=== PATIENT | male | born 1995 | race Caucasian/White ===

== ENCOUNTER 2024-06-20 18:39 | Emergency (ER) | payer BC, SELFPAY ==
--- NOTE | 2024-06-20 18:40 | ED_ITS ---
HPI - Abdominal Pain General Chief Complaint: Abdominal Pain Stated Complaint: Abdominal Pain Time Seen by Provider: 06/20/24 18:45 Source: patient and RN notes reviewed Mode of arrival: ambulatory Limitations: no limitations History of Present Illness HPI narrative: 28-year-old male presents to the [facility] with abdominal cramping since yesterday. Denies nausea vomiting diarrhea or fevers. Has a history of IBS, appendectomy States that he has been eating a lot of foods that he should not be eating. Spicy foods Has not had to seek treatment for his issues in a while. Onset (ago): day(s) (1) Related Data Allergies Allergy/AdvReac Type Severity Reaction Status Date / Time Penicillins Allergy Unknown RASH Verified 06/20/24 18:52 Review of Systems Review of Systems: All systems reviewed & are unremarkable except as noted in HPI and below Constitutional: Constitutional: Reports no additional constitutional complaints ENT: Reports system reviewed and no additional complaints, except as documented Cardiovascular: Cardiovascular: Reports no additional cardiovascular complaints, Denies chest pain and Denies dyspnea Respiratory: Respiratory: Reports no additional respiratory complaints, Denies chest congestion, Denies cough and Denies dyspnea Gastrointestinal: Gastrointestinal: Reports as per HPI Musculoskeletal: Musculoskeletal: Reports no additional musculoskeletal complaints Integumentary/Breasts: Skin/Breast: Reports system reviewed and no additional complaints, except as docu PMFSH Surgical History Surgical History History of appendectomy July 2018 Comments At the time of my signature, I reviewed and agree with the nursing past medical, surgical, social, and family history. There is no relevant family history pertinent to the patient complaint. Exam Const: General: cooperative, healthy appearing, comfortable, no acute distress, well developed, alert and well nourished Nutritional Appearance: well nourished Orientation/consciousness: patient oriented x3 Limitations: no limitations HENMT: Head: normal to inspection Mouth: Yes Normal oral and palatal mucosa present, Yes lip normal, Yes tongue normal and Yes moist mucous membranes Eyes: General: appearance normal, both eyes and all related structures Alignment and Position: alignment normal Neck: Neck: normal visual inspection, full ROM, no lymphadenopathy and no meningeal signs Chest: Chest palpation & inspection: normal inspection of the chest Resp: Effort & Inspection: normal respiratory effort and able to speak in complete sentences Auscultation: clear to auscultation bilaterally, no crackles, no rales, no rhonchi and no wheezes Cardio: Rate: regular rate GI: Inspection: normal to inspection GI Palp: Yes Soft to palpation, Yes Tenderness to palpation present (GI), No Guarding due to palpation present (GI) and No Rigid due to palpation Auscultation: normal bowel sounds Skin: General skin exam: normal color and no rashes or lesions noted Neuro: General: patient oriented x3, gait normal, moves all extremities and no meningeal signs Cognition (Neuro): normal cognition Speech: normal speech Gait exam (Neuro): Normal gait present Extrem: General: normal to inspection, full ROM, capillary refill normal and normal gait Psych: Appearance: grossly normal and well kempt Mental Status: mental s tatus grossly normal Speech and movement: Normal speech and movement present and Clear speech present Affect: normal affect Attitude: cooperative Course Course Level of Care: Express Care Visit Vital Signs Vital signs: Vital Signs Temperature 97.9 F 06/20/24 18:42 Pulse Rate 68 06/20/24 18:42 Respiratory Rate 18 06/20/24 18:42 Blood Pressure 118/76 06/20/24 18:42 Pulse Oximetry 100 06/20/24 18:42 Oxygen Delivery Room Air 06/20/24 18:42 Temperature 97.9 F 06/20/24 18:42 Pulse Rate 68 06/20/24 18:42 Respiratory Rate 18 06/20/24 18:42 Blood Pressure 118/76 06/20/24 18:42 Pulse Oximetry 100 06/20/24 18:42 Oxygen Delivery Room Air 06/20/24 18:42 Reviewed MDM - Abdominal Pain MDM Narrative Medical decision making narrative: Patient sitting in exam room. Patient is nontoxic, vitals stable. Patient presents with 1 day history of abdominal cramping, periumbilical area. Patient reports a history of IBS. Has not taking medications. Patient states he needs a work note to return tomorrow. Patient appropriate for outpatient treatment with close follow-up Discharge instructions reviewed with patient, as well as provided in writing per nursing staff. The instructions also include specific and strict return/GO TO THE ER as well as f/u information. All questions have been answered, and the patient deny any further questions with discharge and discharge plan. Some parts of this dictation were generated by voice recognition software and may contain typographical and/or grammatical inaccuracies. Differential Diagnosis Differential diagnosis: Likely abdominal pain, acute appendicitis, calculus of kidney, constipation and diverticulitis Critical Care Time Critical Care Time Critical Care Time: No Discharge Plan Discharge Clinical Impression: History of IBS, Abdominal cramping Patient Disposition: Home Condition: Stable Instructions: Antibiotic Form, Irritable Bowel Syndrome (ED) Additional Instructions: A list for [facility] has been given to you. Please call and make a follow-up appointment. Keep your diet very simple. Nothing fried, greasy, spicy or highly process With IBS it is recommended that she take a pre and probiotic. For new or worsening symptoms go directly to the emergency room Patient Language: Greenlandic Prescriptions: New dicyclomine 10 mg capsule 10 mg PO TID 7 Days Qty: 21 0RF Follow-up/Referrals: Laith,Bharath Joseph MD [Primary Care Provider] - Stand Alone Forms: Work/School Release IP Time of Disposition: 18:56
[2024-06-20 18:42] VITALS: BP 118/76; PULSE 68; RESP 18; TEMP 36.6; O2SAT 100
== END 2024-06-20 18:59 | disposition home or self-care (01) ==
PROVIDERS: Emergency Provider Nurse Practitioner; PCP Family Medicine
DX: K58.9 Irritable bowel syndrome, unspecified (principal); R10.9 Unspecified abdominal pain
CPT/HCPCS: 99203; G0463

== ENCOUNTER 2024-06-29 02:22 | Emergency (ER) | payer BC, SELFPAY ==
--- OUTSIDE RECORDS SUMMARY | 2024-06-29 02:25 | XMS_ITS | Clinical Summary ---
Author Organization [facility] Address [address] [place] [address] Care Team Providers Care Air Brake Mechanic Name Role Phone Charanjit Bagley MD Unavailable [phone] Alondra Brand MD Primary Care Provider [phone] Allergies Active Allergy Reactions Criticality Noted Date Comments Penicillins Hives 09/18/2015 Medications No known medications Active Problems Problem Noted Date Diagnosed Date Tobacco use 09/29/2015 Cardiac murmur, unspecified Asthma (HHS/HCC) Thyroid disease Family History Medical History Relation Comments [place] Paternal Grandmother Relation Status Comments Paternal Grandmother Social History Tobacco Use Types Packs/Day Years Used Date Smoking Tobacco: Every Day Cigarettes Smokeless Tobacco: Never Alcohol Use Standard Drinks/Week Comments Yes 0 (1 standard drink = 0.6 oz pur e alcohol) occasionally Sex and Gender Information Value Date Recorded Sex Assigned at Not on file Legal Sex Male 5:20 PM CDT Gender Identity Not on file Sexual Orientation Not on file Last Filed Vital Signs Vital Sign Reading Time Taken Comments Blood Pressure 124/78 10/23/2015 8:41 AM CDT Pulse 60 09/18/2015 11:05 AM CDT Temperature - - Respiratory Rate - - Oxygen Saturation 99% 09/18/2015 11:05 AM CDT Inhaled Oxygen Concentration - - Weight 55.8 kg (123 lb) 10/23/2015 8:10 AM CDT Height 172.7 cm (5' 8 ) 10/23/2015 8:10 AM CDT Body Mass Index 18.7 10/23/2015 8:10 AM CDT Plan of Treatment Health Maintenance Due Date Last Done Comments Annual Physical 09/01/1998 Hepatitis C 09/01/2013 DTaP, Tdap and Td Vaccines ( 1 - Tdap) 09/01/2014 Hepatitis B Vaccines (1 of 3 - 19+ 3-dose series) 09/01/2014 Pneumococcal Vaccine: Pediat rics (0 to 5 Years) and At-Risk Patients (6 to 49 Years) (1 of 2 - PCV) 09/01/2014 COVID-19 Vaccine (1 - 2023-2 5 season) 2023 HPV Vaccines Aged Out No longer eligi ble based on patient's age to complete this topic Meningococcal B Vaccine Aged Out No l onger eligible based on patient's age to complete this topic Meningococcal Vaccine Aged Out No jennifer morteza eligible based on patient's age to complete this topic RSV Immunizations Under 20 Months Aged Out No longer eligible based on patient's age to complete this topic Insurance [address] [place] [address] [id number] [place] [address] Care Teams Air Brake Mechanic Relationship Specialty Start Date End Date Alondra Brand MD [address] [place] [address] PCP - General 10/18/16 Charanjit Bagley MD [facility]. [address] [place] [address] [employer] Correspondent CARDIOVASCULAR DISEASE 08/19/15
--- OUTSIDE RECORDS SUMMARY | 2024-06-29 02:25 | XMS_ITS | Encounter Summary ---
Author Organization [facility] Address [facility] [place] [address] Care Team Providers Care Gearcase Assembler Name Role Phone Alondra Brand MD Primary Care Provider [phone] Charanjit Bagley MD Unavailable [phone] Md Generic Conversion Primary Care Provider Unavailable Md Generic Conversion Primary Care Provider Unavailable Md Generic Conversion Primary Care Provider Unavailable Md Generic Conversion Primary Care Provider Unavailable Alondra Brand MD Primary Care Provider Encounter Details Date Type Department Care Team (Late st Contact Info) Description 08/19/2015 Abstract [facility] AT [address] [address] Lisa Trevino, [facility] Social History Tobacco Use Types Packs/Day Years Used Date Smoking Tobacco: Never Assessed Sex and Gender Information Value Date Recorded Sex Assigned at Not on file Legal Sex Male 5:20 PM CDT Gender Identity Not on file Sexual Orientation Not on file documented as of this encounter Plan of Treatment Not on file documented as of this encounter Procedures Procedure Name Priority Date/Time Associated Diagnosis Comments COMPREHENSIVE METABOLIC PANEL Routine 07/09/2015 LIPID PANEL Routine 07/09/2015 documented in this encounter Results * COMPREHENSIVE METABOLIC PANEL (07/09/2015) SODIUM S/P/B 143 POTASSIUM S/P/B 4.5 CO2 26 CHLORIDE S/P/B 101 GLUCOSE 92 CALCIUM S/P/B 9.8 BUN 10 CREATININE S/P/B 0.85 EGFR AFR. AMER. 146 EGFR NON-AFR. AMER. 126 ALKALINE PHOSPHATASE S/P/B 64 ALT 15 AST 15 BILIRUBIN TOTAL S/P/B 0.5 ALBUMIN S/P/B 4.8 3.5 - 5.0 TOTAL PROTEIN S/P/B 7.0 GLOBULIN 2.2 07/09/2015 us Doc [facility] Final Result * LIPID PANEL (07/09/2015) CHOLESTEROL 156 HDL 37 TRIGLYCERIDES 66 LDL (CALCULATED) 106 07/09/2015 us Doc [facility] Final Result documented in this encounter Visit Diagnoses Not on filedocumented in this encounter Care Teams Gearcase Assembler Relationship Specialty Start Date End Date Alondra Brand MD [address] [facility] [address] [place] [address] PCP - General FAMILY PRACTICE 08/19/15 08/23/15 Md Generic Conversion, PCP - General 02/11/16 10/17/16 Md Generic Conversion, PCP - General 10/22/15 02/10/16 Md Generic Conversion, PCP - General 10/20/15 10/21/15 Md Generic Conversion, PCP - General 08/24/15 10/19/15 Alondra Brand MD [address] [facility] [address] [place] [address] PCP - General 10/18/16 Charanjit Bagley MD [address] [facility]. [address] [place] [address] [employer] CARDIOVASCULAR DISEASE 08/19/15 documented as of this encounter
--- OUTSIDE RECORDS SUMMARY | 2024-06-29 02:25 | XMS_ITS | Clinical Summary ---
Author Organization [facility] Address [address] [place] [address] Care Team Providers Care Desktop Specialist Name Role Phone Bharath Covington MD Primary Care Provider [phone] Source Comments [facility],non-owned Affiliates and Associated Physician Practices is amultiple site organization consisting of ambulatory clinics and hospital sitesin [place], [place], [place] and [place]. This disclosure is being madepursuant to the Care Everywhere program and may not contain all information available regarding this patient. Last updated 17.[facility] Allergies Active Allergy Reactions Criticality Noted Date Comments Penicillins Rash 06/18/2009 Medications * Be aware that medications may not be up to date on this document. Alwaysverify current medications with the patient. fluticasone propionate (FLUTICASONE PROPIONATE) 50 MCG/ACT nasal spray [place] 2 Sprays into each nostril once daily. 1 Bottle 3 08/02/2012 Active Family History Medical History Relation Name Comments Childhood Hearing Disorder Maternal Aunt Anesthesia Reaction Other mat grandmother hard to wake Bleeding Disorders Neg Hx Relation Name Status Comments Maternal Aunt Other mat grandmother Alive Social History Tobacco Use Types Packs/Day Years Used Date Smoking Tobacco: Never Alcohol Use Standard Drinks/Week Comments No 0 (1 standard drink = 0.6 oz pur e alcohol) Sex and Gender Information Value Date Recorded Sex Assigned at Not on file Legal Sex Male 5:38 AM BRICK CATCHER Gender Identity Not on file Sexual Orientation Not on file Last Filed Vital Signs Vital Sign Reading Time Taken Comments Blood Pressure 120/68 08/25/2009 11:10 AM CDT Pulse 60 08/25/2009 12:44 PM CDT Temperature 36.7 C (98 F) 08/25/2009 11:10 AM CDT Respiratory Rate 14 08/25/2009 12:44 PM CDT Oxygen Saturation 100% 08/25/2009 10:50 AM CDT Inhaled Oxygen Concentration - - Weight 53.1 kg (117 lb) 08/02/2012 1:03 PM CDT Height 170.2 cm (5' 7 ) 08/02/2012 1:03 PM CDT Body Mass Index 18.32 08/02/2012 1:03 PM CDT Plan of Treatment Health Maintenance Due Date Last Done Comments HIV SCREENING 09/01/2010 HEPATITIS C SCREENING 08/28/2013 DTAP/TDAP/TD VACCINES (1 - Tdap) 09/01/2014 HEPATITIS B VACCINE (1 of 3 - 19+ 3-dose series) 09/01/2014 COVID-19 VACCINE (1 - 2023-2 5 season) 2023 DEPRESSION SCREENING 03/06/2024 INFLUENZA VACCINE (Season Ended) 2024 ZOSTER VACCINE (1 of 2) 09/01/2045 HIB VACCINE Aged Out No longer eligi ble based on patient's age to complete this topic HPV VACCINE Aged Out No longer eligi ble based on patient's age to complete this topic MENINGOCOCCAL (Group B) VACC INE SHARED DECISION-MAKING Aged Out No longer eligibl e based on patient's age to complete this topic MENINGOCOCCAL GROUPS A/C/Y/W VACCINE Aged Out No longer eligible b ased on patient's age to complete this topic PNEUMOCOCCAL VACCINE Aged Out No long er eligible based on patient's age to complete this topic Insurance [employer] Care Teams Desktop Specialist Relationship Specialty Start Date End Date Bharath Covington MD [address] [address] PCP - General 05/19/09
--- OUTSIDE RECORDS SUMMARY | 2024-06-29 02:25 | XMS_ITS | Patient Health Record ---
Author Organization [facility] Planning Address [address] [place] [address] Care Team Providers Care Dry Box Tender Name Role Phone Padilla Garcia Primary Care Provider Allergies Allergen (clinical drug ingredient) Drug/Non Drug Allergy documented on EMR Reaction Allergy Type Onset Date Status amoxicillin Amoxicillin rash Drug Allergy Act kade Penicillin rash Drug Allergy Active Results Component Value Reference Range Notes CBC W AUTO DIFF Reviewed date:04/24/2024 11:53:14 AM Interpretation: Performing Lab:[place], [facility]-[id number] Andrzej Mortensen, [id number] Tirso Ley MD Notes/Report: 0; 0; 0 WHITE BLOOD CELL COUNT 7.9 3.8-10.8 Thousand/ uL RED BLOOD CELL COUNT 5.67 4.20-5.80 Million/uL HEMOGLOBIN 16.3 13.2-17.1 g/dL HEMATOCRIT 47.9 38.5-50.0 % MCV 84.5 80.0-100.0 fL MCH 28.7 27.0-33.0 pg MCHC 34.0 32.0-36.0 g/dL For adults, a slight decrease in the calculated MCHC value (in the range of 30 to 32 g/dL) is most likely not clinically significant; however, it should be interpreted with caution in correlation with other red cell parameters and the patient's clinical condition. RDW 12.9 11.0-15.0 % PLATELET COUNT 276 140-400 Thousand/uL MPV 10.8 7.5-12.5 fL ABSOLUTE NEUTROPHILS 4629 0833-6363 cells/uL ABSOLUTE LYMPHOCYTES 2070 850-3900 cells/uL ABSOLUTE MONOCYTES 664 200-950 cells/uL ABSOLUTE EOSINOPHILS 450 15-500 cells/uL ABSOLUTE BASOPHILS 87 0-200 cells/uL NEUTROPHILS 58.6 LYMPHOCYTES 26.2 MONOCYTES 8.4 EOSINOPHILS 5.7 BASOPHILS 1.1 COMPREHENSIVE METABOLIC PANE L (CMP) Reviewed date:04/24/2024 11:53:14 AM Interpretation: Performing Lab:[facility]-[id number] Andrzej Mortensen, [id number] Tirso Ley MD Notes/Report: 0; 0; 0 GLUCOSE 94 65-99 mg/dL Fasting reference interval UREA NITROGEN (BUN) 11 7-25 mg/dL CREATININE 0.93 0.60-1.24 mg/dL EGFR 115 > OR = 60 mL/min/1.73m2 BUN/CREATININE RATIO SEE NOTE: 6-22 (calc) Not Reported: BUN and Creatinine are within reference range. SODIUM 141 135-146 mmol/L POTASSIUM 4.3 3.5-5.3 mmol/L CHLORIDE 104 98-110 mmol/L CARBON DIOXIDE 32 20-32 mmol/L CALCIUM 9.2 8.6-10.3 mg/dL PROTEIN, TOTAL 6.8 6.1-8.1 g/dL ALBUMIN 4.7 3.6-5.1 g/dL GLOBULIN 2.1 1.9-3.7 g/dL (calc) ALBUMIN/GLOBULIN RATIO 2.2 1.0-2.5 (calc) BILIRUBIN, TOTAL 0.6 0.2-1.2 mg/dL ALKALINE PHOSPHATASE 67 36-130 U/L AST 17 10-40 U/L ALT 36 9-46 U/L LIPID PANEL Reviewed date:04/24/2024 11:53:14 AM Interpretation: Performing Lab:[facility]-[id number] Andrzej Mortensen, [id number] Tirso Ley MD Notes/Report: 0; 0; 0 CHOLESTEROL, TOTAL 194 <200 mg/dL HDL CHOLESTEROL 38 > OR = 40 mg/dL TRIGLYCERIDES 152 <150 mg/dL LDL-CHOLESTEROL 129 Reference range: <100 Desirable range <100 mg/dL for primary prevention; <70 mg/dL for patients with CHD or diabetic patients with > or = 2 CHD risk factors. LDL-C is now calculated using the Matthew-Robertson calculation, which is a validated novel method providing better accuracy than the Friedewald equation in the estimation of LDL-C. Matthew SS et al. CARLO. 2013;310(19): 1866-6962 (http://education.United Prototype/faq/NKO060) CHOL/HDLC RATIO 5.1 <5.0 (calc) NON HDL CHOLESTEROL 156 <130 mg/dL (calc) For patients with diabetes plus 1 major ASCVD risk factor, treating to a non-HDL-C goal of <100 mg/dL (LDL-C of <70 mg/dL) is considered a therapeutic option. Reason For Referral Reason eval and treat chron ic low back pain * Type: New Patient * To be seen: First Available Appt * Preferred Provider: MD or Mid-Level *[place]: Please fax consultation note and any testing completed to [phone]. Thank you. Diagnosis 1 Lumbago with sciatic a, right side (M54.41) Diagnosis 2 Lumbago with sciatic a, left side (M54.42) Referral Organization [facility] Referring Provider First Name Padilla Referring Provider Last Name Jose Referring Provider Speciality Family Pra ctice Referred Provider Specialty Physical The rapist General Notes Vijaya Gonsalez 0 04/24/2024 08:42:10 AM >faxing to [facility] Rehab fax [phone], Vijaya Gonsalez 04/25/2024 04:37:25 PM >closing per protocol Clinical Notes [facility] Rehab , ph. , fax [phone] Referral Priority Routine Medications Medication SIG (Take, Route, Frequency, Duration) Notes Start Date End Date Status Dicyclomine HCl 10 MG 1 capsules Orally four times a day Active Cyclobenzaprine HCl 10 MG 1 tablet at be dtime as needed Orally Once a day Active Albuterol Sulfate HFA 108 (9 0 Base) MCG/ACT 1 puff as needed Inhalation every 4 hrs for 30 days Active Social History Tobacco Use: Social History Observation Description Date Details (start date - stop date) Never Smoker NA - NA Tobacco use other than smoking: Question Answer Notes Are you an other tobacco user? No , Vaping DAST-10 (2020 Edition) Question Answer Notes 1. Have you used drugs other than those required for medical reasons? No 2. Do you abuse more than one drug at a time? No 3. Are you always able to st op using drugs when you want to? Yes 4. Have you had blackouts or flashbacks as a result of drug use? No 5. Do you ever feel bad or guilty about your tim g use? No 6. Does your spouse (or pare nts) ever complain about your involvement with drugs? No 7. Have you neglected your f amily because of your use of drugs? No 8. Have you engaged in PlexPressg al activities in order to obtain drugs? No 9. Have you ever experienced withdrawal symptoms (felt sick) when you stopped taking drugs? No 10. Have you had medical pro blems as a result of your drug use (e.g., memory loss, hepatitis, convulsions, bleeding etc.)? No Results: 0 Interpretation of Score: No problems reported Tobacco Control (Standard) Question Answer Notes Tobacco use: Nonsmoker AUDIT-C (Standard) Question Answer Notes Did you have a drink contain ing alcohol in the past year? Yes How often did you have a dri nk containing alcohol in the past year? Monthly or less (1 point) How many drinks did you have on a typical day when you were drinking in the past year? 3 or 4 drinks (1 point) How often did you have six o r more drinks on one occasion in the past year? Never (0 point) Points 2 Interpretation Negative Problems Problem Type SNOMED Code ICD Code Onset Dates Problem Status W/U Status Risk Notes Problem 61337306 Other chronic pain (G89.29) Active confirmed Problem 792714390 Mild intermitten t asthma, uncomplicated (J45.20) Active confirmed Problem 272932247138967 Lumbago with sciatica, right side (M54.41) Active confirmed Problem 212742920 Lumbago with sciatica, left side (M54.42) Active confirmed Vital Signs Heart Rate 86 /min 04/23/2024 Temperature 97.3 degrees Fahrenheit 04/23/2024 Respiratory Rate 18 /min 04/23/2024 Blood pressure diastolic 75 mm Hg 04/23/2024 Oximetry 98 % 04/23/2024 Height-cm 172.72 cm 04/23/2024 Weight-kg 63.05 kg 04/23/2024 Height 5ft 8in in 04/23/2024 Blood pressure systolic 110 mm Hg 04/23/2024 Weight 139.0 lbs 04/23/2024 BMI 21.13 kg/m2 04/23/2024 Procedures Procedure Date Ordered Date Performed Result Body Sit e EAR IRRIGATION 04/23/2024 04/23/2024 N/A Encounters Encounter Location Date Provider Diagnosis [address] [address] 04/23/2024 Padilla Garcia Encounter to [facility] Z76.89 ; Screening for cardiovascular condition Z13.6 ; Other chronic pain G89.29 ; Lumbago with sciatica, right side M54.41 ; Lumbago with sciatica, left side M54.42 ; Bilateral impacted cerumen H61.23 and Mild intermittent asthma, uncomplicated J45.[address] [address] 04/24/2024 Padilla Garcia [address] [address] 05/01/2024 Padilla Garcia [address] [address] 05/22/2024 Padilla Garcia Assessments Encounter Date Diagnosis (ICD Code) Assessment Notes Treatment Notes Treatment Clinical Notes Section Notes 04/23/2024 Screening for cardiovascular condition (ICD-10 - Z13.6) 04/23/2024 [facility]counter to [facility] (ICD-10 - Z76.89) Reviewed PMHx, Surgical History, and medications with patient. 04/23/2024 Other chronic pain (ICD-10 - G89.29) - Limit activities that increase pain but try to increase mobility with stretching and exercise daily. - Use proper body mechanics for lifting. May alternate between cold and hot packs. - May use Ibuprofen OTC to relieve pain and inflammation. (if instructed) or Tylenol OTC. - May use OTC lidocaine patch or Capsaicin cream to affected area for pain. - It is important to wear good supportive shoes. - Go to ER if symptoms worsen (motor deficits to lower extremities, numbness/tingli ng lower extremities, lose control of bowel/bladder). F/U as discussed, patient v/u. 04/23/2024 Lumbago with sciatica, right side (ICD-10 - M54.41) - our office will call you with an appointment date and time - please call the office in 2 week if you have do not have this information 04/23/2024 Lumbago with sciatica, left side (ICD-10 - M54.42) 04/23/2024 Bilateral impacted cerumen (ICD-10 - H61.23) nursing staff completed ear lavage TM and AC normal 04/23/2024 Mild intermittent asthma, uncomplicated (ICD-10 - J45.20) 04/23/2024 Other Learning About Dental Care material was published Plan Of Treatment Next Appt Details Provider Name:Padilla Ross , 07/25/2024 09:00:00 AM, [address] [place], [address], Insurance Providers Payer Name Payer Address Payer Phone Subscriber Number Group Number Insured Name Patient Relationship to Insured Coverage Start Date Coverage End Date O BCBS FQHC [address] [place] [phone] [id number] 3 Baltazar Gibbons Self - patient is the insured 5 O BCBS FFS [address] [place] [phone] [id number] 3 Baltazar Gibbons Self - patient is the insured 5 O BCBS Nonbillable [address] [place] [phone] [id number] 3 Baltazar Gibbons Self - patient is the insured 5 Medical (General) History Surgical History Surgery Date(Month/Year) apendectomy tonsils removed adnoids removed twice tubes in ears
[2024-06-29 02:29] VITALS: BP 112/64; PULSE 73; RESP 18; TEMP 36.6; O2SAT 98
[2024-06-29 02:53] VITALS: RESP 16; O2SAT 99
[2024-06-29 02:58] VITALS: BP 117/80; PULSE 66; RESP 13; O2SAT 100
--- OUTSIDE RECORDS SUMMARY | 2024-06-29 04:50 | XMS_ITS | Clinical Summary ---
Author Organization [facility] Address [address] [place] [address] Care Team Providers Care Associate Manager Name Role Phone Bharath Covington MD Primary Care Provider [phone] [facility],non-owned Affiliates and Associated Physician Practices is amultiple site organization consisting of ambulatory clinics and hospital sitesin [place], [place], [place] and [place]. This disclosure is being madepursuant to the Care Everywhere program and may not contain all information available regarding this patient. Last updated 17.[facility] [employer] Allergies Active Allergy Reactions Criticality Noted Date Comments Penicillins Rash 06/18/2009 Medications * Be aware that medications may not be up to date on this document. Alwaysverify current medications with the patient. fluticasone propionate (FLUTICASONE PROPIONATE) 50 MCG/ACT nasal spray [place] 2 Sprays into each nostril once daily. 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
--- OUTSIDE RECORDS SUMMARY | 2024-06-29 04:50 | XMS_ITS | Clinical Summary ---
Author Organization [facility] Address [address] [place] [address] Care Team Providers Care Cloud Engineer Name Role Phone Charanjit Bagley MD Unavailable [phone] Alondra Brand MD Primary Care Provider [phone] Allergies Active Allergy Reactions Criticality Noted Date Comments Penicillins Hives 09/18/2015 Medications No known medications Active Problems Problem Noted Date Diagnosed Date Tobacco use 09/29/2015 Cardiac murmur, unspecified Asthma (HHS/HCC) Thyroid disease Family History Medical History Relation Comments [place] Paternal Grandmother Relation Status Comments Paternal Grandmother [...] age to complete this topic Insurance [address] [place] [address] [id number] [place] [address] Care Teams Cloud Engineer Relationship Specialty Start Date End Date Alondra Brand MD [address] [place] [address] PCP - General 10/18/16 Charanjit Bagley MD Three [facility]. [address] [place] [address] [place] [employer] Dish Repairer CARDIOVASCULAR DISEASE 08/19/15
--- OUTSIDE RECORDS SUMMARY | 2024-06-29 04:50 | XMS_ITS | Encounter Summary ---
Author Organization [facility] Address [facility] [place] [address] Care Team Providers Care Weigh And Charge Worker Name Role Phone Alondar Brand MD Primary Care Provider Charanjit Bagley MD Unavailable [phone] Md Generic Conversion Primary Care Provider Unavailable Md Generic Conversion Primary Care Provider Unavailable Md Generic Conversion Primary Care Provider Unavailable Md Generic Conversion Primary Care Provider Unavailable Alondra Brand MD Primary Care Provider [phone] Encounter Details Date Type Department Care Team (Late st Contact Info) Description 08/19/2015 Abstract [facility] AT [address] [address] Lisa Trevino, [facility] Social History Tobacco Use Types Packs/Day Years [...] on filedocumented in this encounter Care Teams Weigh And Charge Worker Relationship Specialty Start Date End Date Alondra Brand MD [address] [facility] [address] [place] [address] PCP - General FAMILY PRACTICE 08/19/15 08/23/15 Md Generic Conversion, PCP - General 02/11/16 10/17/16 Md Generic Conversion, PCP - General 10/22/15 02/10/16 Md Generic Conversion, PCP - General 10/20/15 10/21/15 Md Generic Conversion, PCP - General 08/24/15 10/19/15 Alondra Brand MD [address] [facility] [address] [place] [address] PCP - General 10/18/16 Charanjit Bagley MD Three [facility]. [address] [place] [address] [place] Utility Operator CARDIOVASCULAR DISEASE 08/19/15 documented as of this encounter
--- NOTE | 2024-06-29 05:09 | ED_ITS ---
HPI - General Adult General Chief complaint: Unspecified Stated complaint: panic attack, N/V Time Seen by Provider: 06/29/24 04:40 History of Present Illness HPI narrative: This is a 28-year-old male presenting ED for panic attack. He was fighting with his because he found out she had been cheating on him. This caused him to have a panic attack. He has also been nauseous for several days. He denies chest pain difficulty breathing abdominal pain. He has a history of panic at tacks and this was his typical Related Data Allergies Allergy/AdvReac Type Severity Reaction Status Date / Time Penicillins Allergy Unknown RASH Verified 06/20/24 18:52 [facility] Surgical History Surgical History History of appendectomy July 2018 Exam Narrative: APPEARANCE: No apparent distress. Head: atraumatic. EYES: EOMI, NOSE: Atraumatic NECK: Trachea midline RESPIRATORY: No increased rate of breathing CTAB CARDIOVASCULAR: RRR, ABDOMINAL: Non-distended soft nontender MUSCULOSKELETAl: No obvious deformities NEURO: Alert. Moving 4/4 extremities SKIN:: Warm, dry. Normal color PSYCHIATRIC: Normal affect Course Vital Signs Vital signs: Vital Signs Temperature 98 F 06/29/24 02:29 Pulse Rate 73 06/29/24 02:29 Respiratory Rate 18 06/29/24 02:29 Blood Pressure 112/64 06/29/24 02:29 Pulse Oximetry 98 06/29/24 02:29 Oxygen Delivery Room Air 06/29/24 02:29 Temperature 98 F 06/29/24 02:29 Pulse Rate 66 06/29/24 02:58 Respiratory Rate 13 06/29/24 02:58 Blood Pressure 117/80 06/29/24 02:58 Pulse Oximetry 100 06/29/24 02:58 Oxygen Delivery Room Air 06/29/24 02:29 Medical Decision Making MDM Narrative Medical decision making narrative: -Course: 28-year-old male presenting with panic attack. By time his panic attack and resolved he is resting comfortably in bed. Has been having some nausea over last several days but no other symptoms. He has a history of IBS which is likely tied to his increased stress. Patient will be given a prescription for Zofran. Discharged primary care follow-up -DDX includes but is not limited to: Anxiety, panic attack, IBS Vital Signs Vital Signs: Vital Signs Temperature 98 F 06/29/24 02:29 Pulse Rate 73 06/29/24 02:29 Respiratory Rate 18 06/29/24 02:29 Blood Pressure 112/64 06/29/24 02:29 Pulse Oximetry 98 06/29/24 02:29 Oxygen Delivery Room Air 06/29/24 02:29 Temperature 98 F 06/29/24 02:29 Pulse Rate 66 06/29/24 02:58 Respiratory Rate 13 06/29/24 02:58 Blood Pressure 117/80 06/29/24 02:58 Pulse Oximetry 100 06/29/24 02:58 Oxygen Delivery Room Air 06/29/24 02:29 Discharge Plan Discharge Clinical Impression: Anxiety Patient Disposition: Home Condition: Stable Instructions: Antibiotic Form, Anxiety (ED) Additional Instructions: Please follow-up with your primary care physician for further management. If you develop thoughts of harming herself or others please return to the ED. Please try to review self instructional situations. Patient Language: Greenlandic Prescriptions: New ondansetron 4 mg tablet,disintegrating 4 mg PO Q8H PRN (Reason: nausea and vomiting) Qty: 30 0RF No Action dicyclomine 10 mg capsule 10 mg PO TID 7 Days Qty: 21 0RF Follow-up/Referrals: Laith,Bharath Joseph MD [Primary Care Provider] - 1 Week ( anxiety )
[2024-06-29 05:12] VITALS: BP 104/67; PULSE 69; RESP 13; O2SAT 100
[2024-06-29 05:36] VITALS: BP 104/67; PULSE 69; RESP 13; O2SAT 100
== END 2024-06-29 05:42 | disposition home or self-care (01) ==
PROVIDERS: Emergency Provider Emergency Medicine; PCP Family Medicine
DX: F41.9 Anxiety disorder, unspecified (principal); K58.9 Irritable bowel syndrome, unspecified
CPT/HCPCS: 99283

== ENCOUNTER 2024-07-15 19:50 | Emergency (ER) | payer OTHER, BC, SELFPAY ==
--- OUTSIDE RECORDS SUMMARY | 2024-07-15 19:52 | XMS_ITS | Clinical Summary ---
Author Organization [facility] Address [address] [place] [address] Care Team Providers Care Occupational Ther Name Role Phone Charanjit Bagley MD Unavailable [phone] Alondra Brand MD Primary Care Provider [phone] Allergies Active Allergy Reactions Criticality Noted Date Comments Penicillins Hives 09/18/2015 Medications No known medications Active Problems Problem Noted Date Diagnosed Date Tobacco use 09/29/2015 Cardiac murmur, unspecified Asthma (HHS/HCC) Thyroid disease Family History Medical History Relation Comments [place] Paternal Grandmother Relation Status Comments Paternal Grandmother [...] age to complete this topic Insurance [address] [place] [address] [id number] [place] [address] Care Teams Occupational Ther Relationship Specialty Start Date End Date Alondra Brand MD [address] [place] [address] PCP - General 10/18/16 Charanjit Bagley MD Three [facility]. [address] [place] [address] [place] Customer Experience Analyst CARDIOVASCULAR DISEASE 08/19/15
--- OUTSIDE RECORDS SUMMARY | 2024-07-15 19:52 | XMS_ITS | Patient Health Record ---
Author Organization [facility] Address [facility] [address] Care Team Providers Care Multi Spindle Operator Name Role Phone Padilla Garcia Primary Care Provider Allergies Allergen (clinical drug ingredient) Drug/Non Drug Allergy documented on EMR Reaction Allergy Type Onset Date Status amoxicillin Amoxicillin rash Drug Allergy Act kade Penicillin rash Drug Allergy Active Results Component Value Reference Range Notes CBC W AUTO DIFF Reviewed date:04/24/2024 11:53:14 AM Interpretation: Performing Lab:[place], [facility]-[id number] Andrzej Mortensen, [id number] Tirso Ley MD Notes/Report: 0; 0; 0 [...] MPV 10.8 7.5-12.5 fL ABSOLUTE NEUTROPHILS 4629 5423-4701 cells/uL ABSOLUTE LYMPHOCYTES 2070 850-3900 cells/uL ABSOLUTE MONOCYTES 664 200-950 cells/uL ABSOLUTE EOSINOPHILS 450 15-500 cells/uL ABSOLUTE BASOPHILS 87 0-200 cells/uL NEUTROPHILS 58.6 LYMPHOCYTES 26.2 MONOCYTES 8.4 EOSINOPHILS 5.7 BASOPHILS 1.1 COMPREHENSIVE METABOLIC PANE L (CMP) Reviewed date:04/24/2024 11:53:14 AM Interpretation: Performing Lab:[facility]-[id number] Andrzej Mortensen, [id number] Tirso Ley MD Notes/Report: 0; 0; 0 [...] Reviewed date:04/24/2024 11:53:14 AM Interpretation: Performing Lab:[facility]-[id number] Andrzej Mortensen, [id number] Tirso Ley MD Notes/Report: 0; 0; 0 [...] equation in the estimation of LDL-C. Matthew VANCE et al. CARLO. 2013;310(19): 1681-4475 (http://Alohar Mobile.Moncai/faq/VUA891) CHOL/HDLC RATIO 5.1 <5.0 (calc) NON HDL [...] consultation note and any testing completed to [phone]. Thank you. Diagnosis 1 Lumbago with sciatic a, right side (M54.41) Diagnosis 2 Lumbago with sciatic a, left side (M54.42) Referral Organization [facility] Referring Provider First Name Padilla Referring Provider Last Name Jose Referring Provider Speciality Family Pra ctice Referred Provider Specialty Physical The rapist General Notes Vijaya Gonsalez 0 04/24/2024 08:42:10 AM >faxing to [facility] Rehab fax [phone], Vijaya Gonsalez 04/25/2024 04:37:25 PM >closing per protocol Clinical Notes [facility] Rehab , ph. , fax [phone] Referral Priority Routine Medications Medication SIG (Take, [...] drugs? No 8. Have you engaged in Logicworksg al activities in order to obtain drugs? [...] Problem Status W/U Status Risk Notes Problem 40253457 Other chronic pain (G89.29) Active confirmed Problem 659086937 Mild intermitten t asthma, uncomplicated (J45.20) Active confirmed Problem 125242661379841 Lumbago with sciatica, right side (M54.41) Active confirmed Problem 409316643 Lumbago with sciatica, left side (M54.42) Active confirmed Vital Signs Heart Rate 86 /min 04/23/2024 Temperature 97.3 degrees Fahrenheit 04/23/2024 Respiratory Rate 18 /min 04/23/2024 Height-cm 172.72 cm 04/23/2024 Oximetry 98 % 04/23/2024 Blood pressure diastolic 75 mm Hg 04/23/2024 Weight-kg 63.05 kg 04/23/2024 Height 5ft 8in in 04/23/2024 Blood pressure systolic 110 mm Hg 04/23/2024 Weight 139.0 lbs 04/23/2024 BMI 21.13 kg/m2 04/23/2024 Procedures Procedure Date Ordered Date Performed Result Body Sit e EAR IRRIGATION 04/23/2024 04/23/2024 N/A Encounters Encounter Location Date Provider Diagnosis [address] [address] 04/23/2024 Padilla Garcia Encounter to [facility] Z76.89 ; Screening for cardiovascular condition Z13.6 ; Other chronic pain G89.29 ; Lumbago with sciatica, right side M54.41 ; Lumbago with sciatica, left side M54.42 ; Bilateral impacted cerumen H61.23 and Mild intermittent asthma, uncomplicated J45.[address] [address] 04/24/2024 Padilla Garcia [address] [address] 05/01/2024 Padilla Garcia [address] [address] 05/22/2024 Padilla Garcia Assessments Encounter Date Diagnosis (ICD Code) Assessment Notes Treatment Notes Treatment Clinical Notes Section Notes 04/23/2024 Screening for cardiovascular condition (ICD-10 - Z13.6) 04/23/2024 Encounter to [facility] (ICD-10 - Z76.89) Reviewed PMHx, Surgical [...] Ross , 07/25/2024 09:00:00 AM, [address] [place], [address], Insurance Providers Payer Name Payer Address Payer Phone Subscriber Number Group Number Insured Name Patient Relationship to Insured Coverage Start Date Coverage End Date O BCBS FQHC [address] [place] [phone] [id number] 3 Baltazar Gibbons Self - patient is the insured 5 O BCBS FFS [address] [place] [phone] [id number] 3 Baltazar Gibbons Self - patient is the insured 5 O BCBS Nonbillable [address] [place] [phone] [id number] 3 Baltazar Gibbons Self - patient is the insured 5 Medical (General) History Surgical History Surgery Date(Month/Year) apendectomy tonsils removed adnoids removed twice tubes in ears
--- OUTSIDE RECORDS SUMMARY | 2024-07-15 19:52 | XMS_ITS | Encounter Summary ---
Author Organization [facility] Address [facility] [place] [address] Care Team Providers Care City Director Name Role Phone Alondra Brand MD Primary Care Provider Charanjit Bagley MD Unavailable [phone] Md Generic Conversion Primary Care Provider Unavailable Md Generic Conversion Primary Care Provider Unavailable Md Generic Conversion Primary Care Provider Unavailable Md Generic Conversion Primary Care Provider Unavailable Alondra Brand MD Primary Care Provider [phone] Encounter Details Date Type Department Care Team (Late st Contact Info) Description 08/19/2015 Abstract [facility] AT [address] [address] Lisa Trevino, [facility] Social History Tobacco Use Types Packs/Day Years [...] on filedocumented in this encounter Care Teams City Director Relationship Specialty Start Date End Date Alondra Brand MD [address] [facility] [address] [place] [address] PCP - General FAMILY PRACTICE 08/19/15 08/23/15 Md Generic Conversion, PCP - General 02/11/16 10/17/16 Md Generic Conversion, PCP - General 10/22/15 02/10/16 Md Generic Conversion, PCP - General 10/20/15 10/21/15 Md Generic Conversion, PCP - General 08/24/15 10/19/15 Alondra Brand MD [address] [facility] [address] [place] [address] PCP - General 10/18/16 Charanjit Bagley MD Three [facility]. [address] [place] [address] Ashley Quality Review Specialist CARDIOVASCULAR DISEASE 08/19/15 documented as of this encounter
--- OUTSIDE RECORDS SUMMARY | 2024-07-15 19:52 | XMS_ITS | Clinical Summary ---
Author Organization [facility] Address [address] [place] [address] Care Team Providers Care Bottom Wheeler Name Role Phone Bharath Covington MD Primary Care Provider [phone] Source Comments [facility],non-owned Affiliates and Associated Physician Practices is amultiple site organization consisting of ambulatory clinics and hospital sitesin [place], [place], [place] and [place]. This disclosure is being madepursuant to the Care Everywhere program and may not contain all information available regarding this patient. Last updated 17.[facility] [employer] Allergies Active Allergy Reactions Criticality Noted Date Comments Penicillins Rash 06/18/2009 Medications * Be aware that medications may not be up to date on this document. Alwaysverify current medications with the patient. fluticasone propionate (FLUTICASONE PROPIONATE) 50 MCG/ACT nasal spray [place] 2 Sprays into each nostril once daily. 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
[2024-07-15 19:58] VITALS: BP 122/73; PULSE 73; RESP 15; TEMP 36.6; O2SAT 98
--- NOTE | 2024-07-15 20:28 | ED_ITS ---
HPI - Back Pain/Injury General Chief Complaint: Back Pain/Injury Stated Complaint: think I pulled something in my back Time Seen by Provider: 07/15/24 19:57 Source: patient Mode of arrival: ambulatory Limitations: no limitations History of Present Illness HPI Narrative: Patient is a 28 y/o male who presents to the ED with c/o left lower back pain. 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 He complains of pain throughout his left lower back. Does radiate slightly into his left leg. Pain worse with movement. Has not taken anything for the pain. Denies bowel or bladder incontinence, saddle anesthesia, numbness, weakness, abdominal pain. Patient notes he has Flexeril at home, but has not taken any of this. Related Data Allergies Allergy/AdvReac Type Severity Reaction Status Date / Time Penicillins Allergy Unknown RASH Verified 07/15/24 19:59 Review of Systems Review of Systems: All systems reviewed & are unremarkable except as noted in HPI. All systems reviewed & are unremarkable except as noted in HPI and below PMFSH Surgical History Surgical History History of appendectomy July 2018 Exam Narrative: GENERAL: Well appearing, well-nourished, non-toxic, in no acute distress. HEAD: Normocephalic, atraumatic. RESPIRATORY: Airway patent, respirations nonlabored. Clear to auscultation bilaterally, no rales, rhonchi, wheezing. CARDIOVASCULAR: Regular rate and rhythm without murmurs, rubs, or gallops. MUSCULOSKELETAL: Moves all extremities. No gross deformities. No significant midline spinal tenderness. No palpable bony deformities or step-offs. Mild tenderness to palpation throughout left-sided thoracic and lumbar paraspinal musculature into left lumbosacral region. Sensation intact. SKIN: Warm, dry, normal color. NEURO: A&O X3. Speech clear. No ataxic movements. PSYCHIATRIC: Appropriate mood and affect. Normal interaction. Course Vital Signs Vital signs: Vital Signs Temperature 97.8 F 07/15/24 19:58 Pulse Rate 73 07/15/24 19:58 Respiratory Rate 15 07/15/24 19:58 Blood Pressure 122/73 07/15/24 19:58 Pulse Oximetry 98 07/15/24 19:58 Oxygen Delivery Room Air 07/15/24 19:58 Temperature 97.8 F 07/15/24 19:58 Pulse Rate 73 07/15/24 19:58 Respiratory Rate 15 07/15/24 19:58 Blood Pressure 122/73 07/15/24 19:58 Pulse Oximetry 98 07/15/24 19:58 Oxygen Delivery Room Air 07/15/24 19:58 MDM - Back Pain/Injury MDM Narrative Medical decision making narrative: Patient presented to ED with left lower back pain that began yesterday 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 Vital signs stable upon arrival. Patient?s pain is positional and localized to paraspinal muscles without signs of cord compression or cauda equina. Normal neurologic exams. No red flag symptoms. No fever noted and no significant risk factors for osteomyelitis or spinal epidural abscess. No symptoms or signs to suggest pain is referred from abdominal or source. Patient ambulates with a steady gait and is felt to be a reasonable candidate for continued outpatient management. Discussed obtaining x-ray imaging here today, however patient politely declined. Does not feel this is necessary. Advised likely lumbar strain, discussed management of such. Patient has Flexeril at home. Recommended he take this, in addition to Tylenol/ibuprofen, will prescribe lidocaine patches. Recommended follow-up with PCP for further evaluation. Given return precautions. Discharged in stable condition. Medical Records Attestation: I reviewed the patient's medical records. Discharge Plan Discharge Clinical Impression: Strain of lumbar region Qualifiers: Encounter type: initial encounter Qualified Code(s): S39.012A - Strain of muscle, fascia and tendon of lower back, initial encounter Patient Disposition: Home Condition: Stable Instructions: Antibiotic Form, Acute Low Back Pain (ED), Lower Back Exercises (ED) Additional Instructions: Continue Tylenol and Ibuprofen as needed for pain. You may use ice/heat, lidocaine patches to area of pain. Take your home muscle relaxers as needed and prescribed. Recommend taking these at night as they may cause sedation. Do not drive, operate heavy machinery, drink alcohol while on muscle relaxers as this may cause further sedation. Follow-up with your primary care doctor for further evaluation. Return to the ED if you experience worsening or severe pain, recurrent injury, numbness in groin or legs, going to the bathroom without meaning to, unable to keep down food or drink, or any other symptoms of concern. Patient Language: Greenlandic Prescriptions: New lidocaine 5 % adhesive patch,medicated 1 patch topical DAILY Qty: 15 0RF Rx Instructions: leave on most painful area for up to 12 hrs No Action dicyclomine 10 mg capsule 10 mg PO TID 7 Days Qty: 21 0RF ondansetron 4 mg tablet,disintegrating 4 mg PO Q8H PRN (Reason: nausea and vomiting) Qty: 30 0RF Follow-up/Referrals: Laith,Bharath Joseph MD [Primary Care Provider] - Stand Alone Forms: Work/School Release IP Time of Disposition: 20:30
[2024-07-15] MEDS: ACETAMINOPHEN 500 MG TABLET 1000 MG PO (20:35)
[2024-07-15] MEDS: CYCLOBENZAPRINE HCL 5 MG TABLET PO (20:35)
[2024-07-15] MEDS: LIDOCAINE 5% PATCH 1 PATCH TRANSDERM (20:35)
[2024-07-15] MEDS: KETOROLAC (*BKC) 60 MG/2 ML VIAL IM (20:36)
--- OUTSIDE RECORDS SUMMARY | 2024-07-15 20:38 | XMS_ITS | Clinical Summary ---
Author Organization [facility] Address [address] [place] [address] Care Team Providers Care Moth Proofer Name Role Phone Bharath Covington MD Primary Care Provider [phone] Source Comments [facility],non-owned Affiliates and Associated Physician Practices is amultiple site organization consisting of ambulatory clinics and hospital sitesin [place], [place], [place] and [place]. This disclosure is being madepursuant to the Care Everywhere program and may not contain all information available regarding this patient. Last updated 17.[facility] [employer] Allergies Active Allergy Reactions Criticality Noted Date Comments Penicillins Rash 06/18/2009 Medications * Be aware that medications may not be up to date on this document. Alwaysverify current medications with the patient. fluticasone propionate (FLUTICASONE PROPIONATE) 50 MCG/ACT nasal spray [place] 2 Sprays into each nostril once daily. 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 PLAN Care Teams Moth Proofer Relationship Specialty Start Date End Date Bharath Covington MD [address] [address] PCP - General 05/19/09
--- OUTSIDE RECORDS SUMMARY | 2024-07-15 20:38 | XMS_ITS | Clinical Summary ---
Author Organization [facility] Address [address] [place] [address] Care Team Providers Care Municipal Court Magistrate Name Role Phone Charanjit Bagley MD Unavailable [phone] Alondra Brand MD Primary Care Provider [phone] Allergies Active Allergy Reactions Criticality Noted Date Comments Penicillins Hives 09/18/2015 Medications No known medications Active Problems Problem Noted Date Diagnosed Date Tobacco use 09/29/2015 Cardiac murmur, unspecified Asthma (HHS/HCC) Thyroid disease Family History Medical History Relation Comments [place] Paternal Grandmother Relation Status Comments Paternal Grandmother [...] age to complete this topic Insurance [address] [place] [id number] [employer] [address] [place] [address] Magistrate Relationship Specialty Start Date End Date Alondra Brand MD [address] [facility] [address] [place] [address] PCP - General 10/18/16 Charanjit Bagley MD Three [facility]. [address] [place] [address] [place] Correctional Classification Counselor CARDIOVASCULAR DISEASE 08/19/15
--- OUTSIDE RECORDS SUMMARY | 2024-07-15 20:38 | XMS_ITS | Encounter Summary ---
Author Organization [facility] Address [facility] [place] [address] Care Team Providers Care Candy Counter Clerk Name Role Phone Alondra Brand MD Primary Care Provider [phone] Charanjit Bagley MD Unavailable [phone] Md Generic Conversion Primary Care Provider Unavailable Md Generic Conversion Primary Care Provider Unavailable Md Generic Conversion Primary Care Provider Unavailable Md Generic Conversion Primary Care Provider Unavailable Alondra Brand MD Primary Care Provider [phone] Encounter Details Date Type Department Care Team (Late st Contact Info) Description 08/19/2015 Abstract [facility] AT [address] [address] Lisa Trevino, [facility] Social History Tobacco Use Types Packs/Day Years [...] on filedocumented in this encounter Care Teams Candy Counter Clerk Relationship Specialty Start Date End Date Alondra Brand MD [address] [facility] [address] [place] [address] PCP - General FAMILY PRACTICE 08/19/15 08/23/15 Md Generic Conversion, PCP - General 02/11/16 10/17/16 Md Generic Conversion, PCP - General 10/22/15 02/10/16 Md Generic Conversion, PCP - General 10/20/15 10/21/15 Md Generic Conversion, PCP - General 08/24/15 10/19/15 Alondra Brand MD [address] [facility] [address] [place] [address] PCP - General 10/18/16 Charanjit Bagley MD Three [facility]. [address] [place] [address] Ashley Tile Power Shear Operator CARDIOVASCULAR DISEASE 08/19/15 documented as of this encounter
== END 2024-07-15 20:49 | disposition home or self-care (01) ==
PROVIDERS: Emergency Provider Physician Assistant; PCP Family Medicine
DX: S39.012A Strain of muscle, fascia and tendon of lower back, initial encounter (principal); X50.0XXA Overexertion from strenuous movement or load, initial encounter
CPT/HCPCS: 96372; 99283; A9270; J1885

== ENCOUNTER 2024-07-18 19:11 | Emergency (ER) | payer BC, SELFPAY ==
--- OUTSIDE RECORDS SUMMARY | 2024-07-18 19:13 | XMS_ITS | Patient Health Record ---
Author Organization [facility] Address [facility] [address] Care Team Providers Care Meat Wrapper Name Role Phone Padilla Garcia Primary Care Provider Allergies Allergen (clinical drug ingredient) Drug/Non Drug Allergy documented on EMR Reaction Allergy Type Onset Date Status amoxicillin Amoxicillin rash Drug Allergy Act kade Penicillin rash Drug Allergy Active Results Component Value Reference Range Notes CBC W AUTO DIFF Reviewed date:04/24/2024 11:53:14 AM Interpretation: Performing Lab:[place], [id number] Andrzej Mortensen, [id number] Tirso Ley MD Notes/Report: 0; 0; 0 [...] MPV 10.8 7.5-12.5 fL ABSOLUTE NEUTROPHILS 4629 4658-5199 cells/uL ABSOLUTE LYMPHOCYTES 2070 850-3900 cells/uL ABSOLUTE MONOCYTES 664 200-950 cells/uL ABSOLUTE EOSINOPHILS 450 15-500 cells/uL ABSOLUTE BASOPHILS 87 0-200 cells/uL NEUTROPHILS 58.6 LYMPHOCYTES 26.2 MONOCYTES 8.4 EOSINOPHILS 5.7 BASOPHILS 1.1 COMPREHENSIVE METABOLIC PANE L (CMP) Reviewed date:04/24/2024 11:53:14 AM Interpretation: Performing Lab:[id number] Andrzej Mortensen, [id number] Tirso Ley MD Notes/Report: 0; 0; 0 [...] Reviewed date:04/24/2024 11:53:14 AM Interpretation: Performing Lab:[id number] Andrzej Mortensen, [id number] Tirso Ley MD Notes/Report: 0; 0; 0 [...] LDL-C. Matthew VANCE et al. CARLO. 2013;310(19): 6736-5319 ([email or web address]) CHOL/HDLC RATIO 5.1 <5.0 (calc) NON HDL [...] consultation note and any testing completed to [phone]. Thank you. Diagnosis 1 Lumbago with sciatic a, right side (M54.41) Diagnosis 2 Lumbago with sciatic a, left side (M54.42) Referral Organization [facility] Referring Provider First Name Padilla Referring Provider Last Name Jose Referring Provider Speciality Family Pra ctice Referred Provider Specialty Physical The rapist General Notes Vijaya Gonsalez 0 04/24/2024 08:42:10 AM >faxing to [facility] Rehab fax [phone], Vijaya Gonsalez 04/25/2024 04:37:25 PM >closing per protocol Clinical Notes [facility] Rehab , ph. [phone], fax [phone] Referral Priority Routine Medications Medication SIG (Take, [...] drugs? No 8. Have you engaged in Birthday Slamg al activities in order to obtain drugs? [...] Problem Status W/U Status Risk Notes Problem [id number] Other chronic pain (G89.29) Active confirmed Problem 309491214 Mild intermitten t asthma, uncomplicated (J45.20) Active confirmed Problem [id number] Lumbago with sciatica, right side (M54.41) Active confirmed Problem 879078852 Lumbago with sciatica, left side (M54.42) Active [...] N/A Encounters Encounter Location Date Provider Diagnosis [facility] [address] [place] [address] 04/24/2024 Padilla Garcia [address] [place] [address] 05/01/2024 Padilla Garcia [facility] [address] [place] [address] 05/22/2024 Padilla Garcia [facility][Note 2] Facility [facility] [place] [address] 04/23/2024 Padilla [facility] ; Screening for cardiovascular condition Z13.6 ; Other chronic pain G89.29 ; Lumbago with sciatica, right side M54.41 ; Lumbago with sciatica, left side M54.42 ; Bilateral impacted cerumen H61.23 and Mild intermittent asthma, uncomplicated J45.20 Assessments Encounter Date Diagnosis (ICD Code) Assessment Notes Treatment Notes Treatment Clinical Notes Section Notes 04/23/2024 Screening for cardiovascular condition (ICD-10 - Z13.6) 04/23/2024 Encounter to establish care (ICD-10 - Z76.89) Reviewed PMHx, Surgical [...] Ross , 07/25/2024 09:00:00 AM, [address] [place], [address], Insurance Providers Payer Name Payer Address Payer Phone Subscriber Number Group Number Insured Name Patient Relationship to Insured Coverage Start Date Coverage End Date O BCBS FQHC [address] [place] [phone] [id number] 3 Baltazar Gibbons Self - patient is the insured 5 O BCBS FFS [address] [place] [phone] [id number] 3 Baltazar Gibbons Self - patient is the insured 5 O BCBS Nonbillable [address] [place] [phone] [id number] 3 Baltazar Gibbons Self - patient is the insured 5 Medical (General) History Surgical History Surgery Date(Month/Year) apendectomy tonsils removed adnoids removed twice tubes in ears
--- OUTSIDE RECORDS SUMMARY | 2024-07-18 19:13 | XMS_ITS | Clinical Summary ---
Author Organization [facility] Address [address] [place] [address] Care Team Providers Care Adjunct Latin Professor Name Role Phone Charanjit Bagley MD Unavailable [phone] Alondra Brand MD Primary Care Provider [phone] Allergies Active Allergy Reactions Criticality Noted Date Comments Penicillins Hives 09/18/2015 Medications No known medications Active Problems Problem Noted Date Diagnosed Date Tobacco use 09/29/2015 Cardiac murmur, unspecified Asthma (HHS/HCC) Thyroid disease Family History Medical History Relation Comments [place] Paternal Grandmother Relation Status Comments Paternal Grandmother [...] age to complete this topic Insurance [address] [place] [id number] [address] [place] [address] Care Teams Adjunct Latin Professor Relationship Specialty Start Date End Date Alondra Brand MD [address] [facility] [place] [address] PCP - General 10/18/16 Charanjit Bagley MD Three [facility]. [address] [place] [address] [place] Slat Basket Maker Helper CARDIOVASCULAR DISEASE 08/19/15
--- OUTSIDE RECORDS SUMMARY | 2024-07-18 19:13 | XMS_ITS | Encounter Summary ---
Author Organization [facility] Address [facility] [place] [address] Care Team Providers Care Bag Machine Set Up Operator Name Role Phone Alondra Brand MD Primary Care Provider [phone] Charanjit Bagley MD Unavailable Md Generic Conversion Primary Care Provider Unavailable Md Generic Conversion Primary Care Provider Unavailable Md Generic Conversion Primary Care Provider Unavailable Md Generic Conversion Primary Care Provider Unavailable Alondra Brand MD Primary Care Provider [phone] Encounter Details Date Type Department Care Team (Late st Contact Info) Description 08/19/2015 Abstract [facility] AT [address] [address] Lisa Trevino, [facility] Social History Tobacco Use Types Packs/Day Years [...] on filedocumented in this encounter Care Teams Bag Machine Set Up Operator Relationship Specialty Start Date End Date Alondra Brand MD 3 [facility] [address] [place] [address] PCP - General FAMILY PRACTICE 08/19/15 08/23/15 Md Generic Conversion, PCP - General 02/11/16 10/17/16 Md Generic Conversion, PCP - General 10/22/15 02/10/16 Md Generic Conversion, PCP - General 10/20/15 10/21/15 Md Generic Conversion, PCP - General 08/24/15 10/19/15 Alondra Brand MD 3 [facility] [address] [place] [address] PCP - General 10/18/16 Charanjit Bagley MD Three [facility]. [address] [place] [address] Ashley Machine Stone Polisher Apprentice CARDIOVASCULAR DISEASE 08/19/15 documented as of this encounter
--- OUTSIDE RECORDS SUMMARY | 2024-07-18 19:13 | XMS_ITS | Clinical Summary ---
Author Organization [facility] Address [address] [place] [address] Care Team Providers Care Mixing Technician Name Role Phone Bharath Covington MD Primary Care Provider [phone] Source Comments [facility],non-owned Affiliates and Associated Physician Practices is amultiple site organization consisting of ambulatory clinics and hospital sitesin [place], [place], [place] and [place]. This disclosure is being madepursuant to the Care Everywhere program and may not contain all information available regarding this patient. Last updated 17.[facility] Allergies Active Allergy Reactions Criticality Noted Date Comments Penicillins Rash 06/18/2009 Medications * Be aware that medications may not be up to date on this document. Alwaysverify current medications with the patient. fluticasone propionate (FLUTICASONE PROPIONATE) 50 MCG/ACT nasal spray [place] 2 Sprays into each nostril once daily. 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
[2024-07-18 19:23] VITALS: BP 105/66; PULSE 84; RESP 16; TEMP 36.6; O2SAT 97
--- NOTE | 2024-07-18 19:47 | PC.NURSE ---
Patient walked out before being seen by provider
--- OUTSIDE RECORDS SUMMARY | 2024-07-18 21:22 | XMS_ITS | Clinical Summary ---
Author Organization [facility] Address [address] [place] [address] Care Team Providers Care Jet Operator Name Role Phone Bharath Covington MD Primary Care Provider [phone] Source Comments [facility],non-owned Affiliates and Associated Physician Practices is amultiple site organization consisting of ambulatory clinics and hospital sitesin [place], [place], [place] and [place]. This disclosure is being madepursuant to the Care Everywhere program and may not contain all information available regarding this patient. Last updated 17.[facility] Allergies Active Allergy Reactions Criticality Noted Date Comments Penicillins Rash 06/18/2009 Medications * Be aware that medications may not be up to date on this document. Alwaysverify current medications with the patient. fluticasone propionate (FLUTICASONE PROPIONATE) 50 MCG/ACT nasal spray [place] 2 Sprays into each nostril once daily. 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
--- OUTSIDE RECORDS SUMMARY | 2024-07-18 21:22 | XMS_ITS | Encounter Summary ---
Author Organization [facility] Address Formerly [facility] [place] [address] Care Team Providers Care Stock Room Manager Name Role Phone Alondra rBand MD Primary Care Provider [phone] Charanjit Bagley MD Unavailable [phone] Md Generic Conversion Primary Care Provider Unavailable Md Generic Conversion Primary Care Provider Unavailable Md Generic Conversion Primary Care Provider Unavailable Md Generic Conversion Primary Care Provider Unavailable Alondra Brand MD Primary Care Provider [phone] Encounter Details Date Type Department Care Team (Late st Contact Info) Description 08/19/2015 Abstract [facility] AT [address] [address] Lisa Trevino, [facility] Social History Tobacco Use Types Packs/Day [...] on filedocumented in this encounter Care Teams Stock Room Manager Relationship Specialty Start Date End Date Alondra Brand MD [address] [facility] [address] [place] [address] PCP - General FAMILY PRACTICE 08/19/15 08/23/15 Md Generic Conversion, PCP - General 02/11/16 10/17/16 Md Generic Conversion, PCP - General 10/22/15 02/10/16 Md Generic Conversion, PCP - General 10/20/15 10/21/15 Md Generic Conversion, PCP - General 08/24/15 10/19/15 Alondra Brand MD [address] [facility] [address] [place] [address] PCP - General 10/18/16 Charanjit Bagley MD Three [facility]. [address] [place] [address] Ashley Rebrander CARDIOVASCULAR DISEASE 08/19/15 documented as of this encounter
--- OUTSIDE RECORDS SUMMARY | 2024-07-18 21:22 | XMS_ITS | Clinical Summary ---
Author Organization [facility] Address [address] [place] [id number] Care Team Providers Care Director Content Marketing Name Role Phone Charanjit Bagley MD Unavailable [phone] Alondra Brand MD Primary Care Provider [phone] Allergies Active Allergy Reactions Criticality Noted Date Comments Penicillins Hives 09/18/2015 Medications No known medications Active Problems Problem Noted Date Diagnosed Date Tobacco use 09/29/2015 Cardiac murmur, unspecified Asthma (HHS/HCC) Thyroid disease Family History Medical History Relation Comments [place] Paternal Grandmother Relation Status Comments Paternal Grandmother [...] age to complete this topic Insurance [address] [place] [address] [id number] [place] [address] Care Teams Director Content Marketing Relationship Specialty Start Date End Date Alondra Brand MD [address] [facility] [address] [place] [address] PCP - General 10/18/16 Charanjit Bagley MD Three [facility]. [address] [place] [address] Flat Top Yarding Supervisor CARDIOVASCULAR DISEASE 08/19/15
== END 2024-07-18 19:47 | disposition left against medical advice (07) ==
LOC: ANHED 21:20
PROVIDERS: PCP Family Medicine
DX: R11.2 Nausea with vomiting, unspecified (principal)
CPT/HCPCS: 99199